=== PATIENT | male | born 1975 | race Caucasian/White ===

== ENCOUNTER 2016-11-17 15:07 | Emergency (ER) | payer OTHER ==
[~2016-11-17] VITALS: Ht 190.5 cm; Wt 104.0 kg
[2016-11-17] MEDS ORDERED: FLEXERIL10 MG PO (15:59)
[2016-11-17] MEDS ORDERED: PREDNISONE10 MG PO (15:59)
[2016-11-17 16:37] VITALS: BP 147/101
== END 2016-11-17 16:38 | disposition home or self-care (01) ==
LOC: EME 15:07
DX: M54.32 Sciatica, left side (principal)
CPT/HCPCS: 99281; 99283; J1885; J7512